=== PATIENT | male | born 1975 | race Caucasian/White ===

== ENCOUNTER 2024-04-19 04:44 | Emergency (ER) | payer MEDICAID ==
[~2024-04-19] VITALS: Ht 175.3 cm; Wt 83.9 kg
[~2024-04-19 04:44] MED LIST: CEPH-570 PO; SAME MEDS; SULF1TAB48 PO
[2024-04-19] MEDS ORDERED: VANCOMYCIN 500 MG VIAL ONE (05:16)
[2024-04-19] MEDS ORDERED: VANCOMYCIN 1 GM /D5W 250 ML PB IV ONE (05:16)
[2024-04-19] MEDS ORDERED: IOHEXOL-300 100 ML VIAL IV ONE (05:23)
[2024-04-19] MEDS ORDERED: IV NS 0.9% 250 ML IV ONE (05:23)
[2024-04-19 05:26] LABS: BASOPHILS # (AUTO) 0.1 K/uL (0.0-0.2); BASOPHILS % (AUTO) 0.7 % (0.0-2.0); EOSINOPHILS # (AUTO) 0.5 K/uL (0.0-0.7); EOSINOPHILS % (AUTO) 6.3 % (0.0-6.0); HEMATOCRIT 40 % (39-51); HEMOGLOBIN 13.2 g/dL (13.5-17.5); LYMPHOCYTES # (AUTO) 3.1 K/uL (0.8-4.8); LYMPHOCYTES % (AUTO) 38.9 % (20.0-44.0); MEAN CORPUSCULAR HEMOGLOBIN 29 PG (26.0-33.0); MEAN CORPUSCULAR HGB CONC 33 g/dl (31.0-36.0); MEAN CORPUSCULAR VOLUME 88 fL (80-96); MONOCYTES # (AUTO) 0.7 K/uL (0.1-1.30); MONOCYTES % (AUTO) 9.2 % (2.0-12.0); NEUTROPHILS # (AUTO) 3.6 K/uL (1.8-8.9); NEUTROPHILS % (AUTO) 44.9 % (43.0-81.0); PLATELET COUNT (AUTO) 224 K/uL (150-450); RED BLOOD CELL COUNT(AUTO) 4.57 MIL/uL (4.5-6.0); RED CELL DISTRIBUTION WIDTH 15.5 % (11.5-15.0)
[2024-04-19] MEDS: VANCOMYCIN HCL 1.25 GM in IV D5W 260 ML IV ONE (05:26)
[2024-04-19] MEDS ORDERED: HYDROCODONE/APAP 5/325MG TABLET ONE (05:38)
[2024-04-19 05:40] LABS: ALBUMIN 3.7 g/dL (3.4-5.0); BILIRUBIN,TOTAL 0.3 mg/dL (0.2-1.0); CALCIUM, SERUM 8.7 mg/dL (8.5-10.1); CREATININE 1.2 mg/dL (0.6-1.3); POTASSIUM 4.1 mmol/L (3.5-5.1); TOTAL PROTEIN, SERUM 8.3 g/dL (6.4-8.2)
[2024-04-19] MEDS: HYDROCODONE/APAP 5/325MG TABLET PO ONE (05:40)
[2024-04-19] MEDS ORDERED: LIDOCAINE /MPF 1% VIAL 5 ML VIAL ONE (06:20)
[2024-04-19] MEDS ORDERED: LIDOCAINE 1% INJ 50 ML MDV IJ ONE (06:21)
[2024-04-19] MEDS ORDERED: DOXY100T2 PO (06:46)
[2024-04-19] MEDS ORDERED: CEPH-570 PO (06:46)
[2024-04-19] MEDS: LIDOCAINE 1% INJ 50 ML MDV IJ ONE (06:49)
[2024-04-19 06:58] VITALS: BP 129/80; TEMP 98; O2SAT 99
== END 2024-04-19 06:59 | disposition home or self-care (01) ==
LOC: ER 04:50
DX: L08.9 Local infection of the skin and subcutaneous tissue, unspecified (principal); F17.200 Nicotine dependence, unspecified, uncomplicated; Z60.2 Problems related to living alone
CPT/HCPCS: 99285; 73201; 96365; 10060; 85025; 87040; 36415; 80053; J3490 ×2; J3370 ×2; J7050; Q9967; J7060

== ENCOUNTER 2024-07-23 13:07 | Emergency (ER) | payer MEDICAID ==
[~2024-07-23] VITALS: Ht 172.7 cm; Wt 77.1 kg
[~2024-07-23 13:07] MED LIST changes: +DOXY100T2 PO
[2024-07-23] MEDS ORDERED: KETOROLAC TROMETHAMINE 15 MG/ML VIAL ONE (13:21)
[2024-07-23] MEDS: KETOROLAC TROMETHAMINE 15 MG/ML VIAL IM ONE (13:25)
[2024-07-23 13:46] LABS: BASOPHILS % (AUTO) 0.4 % (0.0-2.0); EOSINOPHILS # (AUTO) 0.3 K/uL (0.0-0.7); EOSINOPHILS % (AUTO) 2.8 % (0.0-6.0); HEMATOCRIT 41 % (39-51); HEMOGLOBIN 13.5 g/dL (13.5-17.5); LYMPHOCYTES # (AUTO) 5.7 K/uL (0.8-4.8); LYMPHOCYTES % (AUTO) 49.3 % (20.0-44.0); MEAN CORPUSCULAR HEMOGLOBIN 29 PG (26.0-33.0); MEAN CORPUSCULAR HGB CONC 33 g/dl (31.0-36.0); MEAN CORPUSCULAR VOLUME 89 fL (80-96); MONOCYTES # (AUTO) 0.8 K/uL (0.1-1.30); MONOCYTES % (AUTO) 7.1 % (2.0-12.0); NEUTROPHILS # (AUTO) 4.6 K/uL (1.8-8.9); NEUTROPHILS % (AUTO) 40.4 % (43.0-81.0); PLATELET COUNT (AUTO) 277 K/uL (150-450); RED BLOOD CELL COUNT(AUTO) 4.62 MIL/uL (4.5-6.0); RED CELL DISTRIBUTION WIDTH 14.6 % (11.5-15.0); WHITE BLOOD COUNT (AUTO) 11.5 K/uL (4.3-11.0)
[2024-07-23 14:04] LABS: CALCIUM, SERUM 9.3 mg/dL (8.5-10.1); CREATININE 1.5 mg/dL (0.6-1.3); POTASSIUM 3.2 mmol/L (3.5-5.1)
[2024-07-23 14:13] LABS: ALBUMIN 4.1 g/dL (3.4-5.0); BILIRUBIN,DIRECT 0.1 mg/dL (0.0-0.2); BILIRUBIN,TOTAL 0.5 mg/dL (0.2-1.0); TOTAL PROTEIN, SERUM 8.1 g/dL (6.4-8.2)
[2024-07-23 15:00] LABS: APPEARANCE,URINE CLEAR (CLEAR); BILIRUBIN,URINE NEGATIVE (NEGATIVE); BLOOD, URINE 3+ Ery/uL (NEGATIVE); COLOR,URINE YELLOW (YELLOW); KETONES,URINE NEGATIVE (NEGATIVE); LEUKOCYTE ESTERASE ,URINE NEGATIVE (NEGATIVE); NITRITE, URINE NEGATIVE (NEGATIVE); PROTEIN,URINE NEGATIVE (NEGATIVE); UGLUCOSE NEGATIVE (NEGATIVE); UROBILINOGEN,URINE 0.2 EU/dL (0.2)
[2024-07-23 15:39] VITALS: BP 109/60; TEMP 97.9; O2SAT 99
[2024-07-23 17:19] LABS: ADD URINE CULTURE NO; BACTERIA,URINE Few /HPF (None Seen); MUCUS,URINE Moderate /LPF (None Seen); RBC,URINE 21-50 /HPF (0-2); SQUAMOUS EPITHELIAL CELL,UR None Seen /HPF (None Seen); WBC,URINE 0-2 /HPF (0-3)
== END 2024-07-23 15:40 | disposition home or self-care (01) ==
LOC: ER 13:49
DX: N13.2 Hydronephrosis with renal and ureteral calculous obstruction (principal); F17.200 Nicotine dependence, unspecified, uncomplicated; Z60.2 Problems related to living alone
CPT/HCPCS: 99285; 74176; 96372; 85025; 80048; 83690; 80076; 81001; 36415; J1885

== ENCOUNTER 2024-08-01 00:05 | Emergency (ER) | payer MEDICAID ==
[~2024-08-01] VITALS: Ht 172.7 cm; Wt 86.2 kg
[2024-08-01 00:05] VITALS: BP 136/73; TEMP 98.2; O2SAT 100
[2024-08-01] MEDS ORDERED: AMOX-430 PO (00:52)
[2024-08-01] MEDS ORDERED: CLIN300C12 PO (00:52)
== END 2024-08-01 00:57 | disposition home or self-care (01) ==
LOC: ER 00:09
DX: L03.114 Cellulitis of left upper limb (principal); F17.200 Nicotine dependence, unspecified, uncomplicated

== ENCOUNTER 2024-10-13 09:46 | Emergency (ER) | payer MEDICAID ==
[~2024-10-13] VITALS: Ht 172.7 cm; Wt 83.9 kg
[~2024-10-13 09:46] MED LIST changes: +AMOX-430 PO; +CLIN300C12 PO
[2024-10-13 09:57] VITALS: BP 119/74; TEMP 97.7
[2024-10-13] MEDS ORDERED: AMOX500T2 PO (10:06)
[2024-10-13] MEDS ORDERED: LIDOCAINE VISCOUS 2% UD 15 ML UDC ONE (10:14)
[2024-10-13 10:19] VITALS: O2SAT 98
[2024-10-13] MEDS: LIDOCAINE VISCOUS 2% UD 15 ML UDC MM ONE (10:19)
== END 2024-10-13 10:20 | disposition home or self-care (01) ==
LOC: ER 10:10
DX: J02.9 Acute pharyngitis, unspecified (principal); R05.9 Cough, unspecified; F17.200 Nicotine dependence, unspecified, uncomplicated; Z60.2 Problems related to living alone; Z79.899 Other long term (current) drug therapy
CPT/HCPCS: 86403-TC; 87070-TC